=== PATIENT | female | born 1990 | race Caucasian/White ===

== ENCOUNTER 2018-01-05 16:10 | Inpatient (IN) | payer MEDICAID ==
[~2018-01-05] VITALS: Ht 167.6 cm; Wt 52.2 kg
[~2018-01-05 16:10] MED LIST: PREN1CAP PO
[2018-01-05 16:16] VITALS: BP 125/72; PULSE 116; RESP 20; TEMP 100.2; O2SAT 100
[2018-01-05] MEDS ORDERED: SODIUM CHLOR 0.9% 1000 ML INJ 1,000 ML IV ONE ×2 (16:45→18:45)
[2018-01-05] MEDS ORDERED: VANCOMYCIN INJ 1,000 MG in SODIUM CHLOR 0.9% 250 ML INJ 250 ML IV ONE (16:45)
[2018-01-05] MEDS ORDERED: KETOROLAC TROMETHAMINE 30 MG/ML (IVP) VIAL IV PUSH ONE (16:45)
[2018-01-05] MEDS ORDERED: PIPERACIL-TAZO 3.375 GM PREMIX 50 ML IV ONE (16:45)
[2018-01-05] MEDS ORDERED: NORG1TAB28 PO (16:56)
[2018-01-05 17:05] VITALS: BP 123/71; PULSE 108; RESP 22; O2SAT 99
[2018-01-05 17:28] LABS: AUTOMATED NEUTROPHIL # 11.5 TH/MM3 (1.8-7.7); BASOPHIL % 0.2 % (0.0-2.0); EOSINOPHIL % 0.2 % (0.0-4.0); HEMATOCRIT 36.9 % (35.0-46.0); HEMOGLOBIN 12.7 GM/DL (11.6-15.3); LYMPH % 4.1 % (9.0-44.0); LYMPHOCYTE # 0.5 TH/MM3 (1.0-4.8); MEAN CELL VOLUME 89.7 FL (80.0-100.0); MEAN CORPUSCULAR HGB CONC 34.5 % (32.0-36.0); MEAN PLATELET VOLUME 8.7 FL (7.0-11.0); MONO % 5.6 % (0.0-8.0); MONOCYTE # 0.7 TH/MM3 (0-0.9); NEUT % 89.9 % (16.0-70.0); PLATELET COUNT 180 TH/MM3 (150-450); RED BLOOD COUNT 4.11 MIL/MM3 (4.00-5.30); RED CELL DISTRIBUTION WIDTH 12.7 % (11.6-17.2); WHITE BLOOD COUNT 12.8 TH/MM3 (4.0-11.0)
[2018-01-05 17:53] LABS: ALT (GPT) 26 U/L (10-53); AST (GOT) 24 U/L (15-37); BICARBONATE 25.7 MEQ/L (21.0-32.0); BLOOD UREA NITROGEN 7 MG/DL (7-18); CALCIUM 8.7 MG/DL (8.5-10.1); CHLORIDE 104 MEQ/L (98-107); CREATININE 0.65 MG/DL (0.50-1.00); GLOMERULAR FILTRATION RATE 109 ML/MIN (>89); GLUCOSE,RANDOM 119 MG/DL (74-106); MAGNESIUM 1.8 MG/DL (1.5-2.5); SODIUM (NA) 139 MEQ/L (136-145)
[2018-01-05 17:56] LABS: ALKALINE PHOSPHATASE 42 U/L (45-117); TOTAL BILIRUBIN ADULT 0.8 MG/DL (0.2-1.0); TOTAL PROTEIN 7.6 GM/DL (6.4-8.2)
[2018-01-05] MEDS ORDERED: diphenhydrAMINE HCL 50 MG/ML VIAL ONE (17:57)
[2018-01-05] MEDS ORDERED: diphenhydrAMINE HCL 50 MG/ML VIAL IV PUSH ONE (18:00)
[2018-01-05 19:07] VITALS: BP 119/64; PULSE 95; RESP 18; TEMP 100.2; O2SAT 100
--- NOTE | 2018-01-05 19:23 | PD ---
HPI Chief Complaint: Skin Problem Time Seen by Provider: 16:34 Travel History International Travel<30 days: No Contact w/Intl Traveler<30days: No Traveled to known affect area: No History of Present Illness HPI 27-year-old female that presents to the ED for evaluation of right leg infection. Per patient is been ongoing for 6 days. Per patient she noted that he looked like insect bite and he progressively has gotten worse. Per patient she has had something like this before last year when she had of her axilla but she did not think much of it and he went away on its own. She is noted that today she developed a fever and she feels more weak and has body aches. She has chills as well. This is what concerned her as well as the increase in size of the infection. She has not seen anybody for this. Denies any other medical issues. No urinary or bowel movement issues. No . No trauma. No history of IV drug abuse. Pain per patient is 8 out of 10 on the right leg. Takes no medications whatsoever other than Motrin or Tylenol for the pain. PFSH Past Medical History Medical History: Denies Significant Hx Cardiovascular Problems: No Endocrine: No Genitourinary: No Immune Disorder: No Musculoskeletal: No Neurologic: No Psychiatric: No Reproductive: No Respiratory: No Immunizations Current: Yes ?: Not LMP: 12/21/17 : 1 Para: 0 Miscarriage: 0 : 0 Past Surgical History Appendectomy: Yes Social History Alcohol Use: No (occassionally ) Tobacco Use: No Substance Use: No Allergies-Medications (Allergen,Severity, Reaction): Coded Allergies: vancomycin (Verified Allergy, Severe, Itching, 01/05/18) Reported Meds & Prescriptions Reported Meds & Active Scripts Active Reported Ortho Tri-Cyclen Lo (Norgestimate-Ethinyl Estradiol) 0.18/0.215/0.25 mg-25 Mcg Tab 1 Tab PO DAILY Review of Systems Except as stated in HPI: all other systems reviewed are Neg Physical Exam Narrative GENERAL: SKIN: Warm and dry. HEAD: Atraumatic. Normocephalic. EYES: Pupils equal and round. No scleral icterus. No injection or drainage. ENT: No nasal bleeding or discharge. Mucous membranes pink and moist. Tongue is midline. No uvula deviation. NECK: Trachea midline. No JVD. CARDIOVASCULAR: Regular rate and rhythm. No murmurs, S3, S4. RESPIRATORY: No accessory muscle use. Clear to auscultation. Breath sounds equal bilaterally. GASTROINTESTINAL: Abdomen soft, non-tender, nondistended. Hepatic and splenic margins not palpable. MUSCULOSKELETAL: Extremities without clubbing, cyanosis, or edema. No obvious deformities. Full range of motion of the upper and lower extremities bilaterally. 2+ pulses bilaterally. Patient has an area of erythema on the anterior aspect of the right leg that is about 10 cm in diameter what appears to be an indurated area on the area just above the tibia. Very tender to touch but no obvious purulence noted. Very warm to touch. No lymphadenopathy noted. Able to move the leg fully. Appears to be in the mid tibia and fibula NEUROLOGICAL: Awake and alert. No obvious cranial nerve deficits. Motor grossly within normal limits. Five out of 5 muscle strength in the arms and legs. Normal speech. PSYCHIATRIC: Appropriate mood and affect; insight and judgment normal. Data Data Last Documented VS Vital Signs Date Time Temp Pulse Resp B/P (MAP) Pulse Ox O2 Delivery O2 Flow Rate FiO2 01/05/18 19:07 100.2 95 18 119/64 (82) 100 Room Air Orders Orders Complete Blood Count With Diff (01/05/18 16:40) Comprehensive Metabolic Panel (01/05/18 16:40) Blood Culture (01/05/18 16:40) C-Reactive Protein (Crp) (01/05/18 16:40) Magnesium (Mg) (01/05/18 16:40) Wound Culture And Gram Stain (01/05/18 16:40) Iv Access Insert/Monitor (01/05/18 16:40) Ecg Monitoring (01/05/18 16:40) Vancomycin Inj (Vancomycin Inj) (01/05/18 16:45) Sodium Chlor 0.9% 1000 Ml Inj (Ns 1000 M (01/05/18 16:45) Piperacil-Tazo 3.375 Gm Premix (Zosyn 3. (01/05/18 16:45) Lactic Acid Sepsis Protocol (01/05/18 16:40) Ketorolac Inj (Toradol Inj) (01/05/18 16:45) Diphenhydramine Inj (Benadryl Inj) (01/05/18 18:00) Diphenhydramine Inj (Benadryl Inj) (01/05/18 17:57) Sodium Chlor 0.9% 1000 Ml Inj (Ns 1000 M (01/05/18 18:45) Admit Order (Ed Use Only) (01/05/18 19:47) Labs Laboratory Tests Test 01/05/18 17:00 White Blood Count 12.8 TH/MM3 Red Blood Count 4.11 MIL/MM3 Hemoglobin 12.7 GM/DL Hematocrit 36.9 % Mean Corpuscular Volume 89.7 FL Mean Corpuscular Hemoglobin 31.0 PG Mean Corpuscular Hemoglobin Concent 34.5 % Red Cell Distribution Width 12.7 % Platelet Count 180 TH/MM3 Mean Platelet Volume 8.7 FL Neutrophils (%) (Auto) 89.9 % Lymphocytes (%) (Auto) 4.1 % Monocytes (%) (Auto) 5.6 % Eosinophils (%) (Auto) 0.2 % Basophils (%) (Auto) 0.2 % Neutrophils # (Auto) 11.5 TH/MM3 Lymphocytes # (Auto) 0.5 TH/MM3 Monocytes # (Auto) 0.7 TH/MM3 Eosinophils # (Auto) 0.0 TH/MM3 Basophils # (Auto) 0.0 TH/MM3 CBC Comment DIFF FINAL Differential Comment Blood Urea Nitrogen 7 MG/DL Creatinine 0.65 MG/DL Random Glucose 119 MG/DL Total Protein 7.6 GM/DL Albumin 4.0 GM/DL Calcium Level 8.7 MG/DL Magnesium Level 1.8 MG/DL Alkaline Phosphatase 42 U/L Aspartate Amino Transf (AST/SGOT) 24 U/L Alanine Aminotransferase (ALT/SGPT) 26 U/L Total Bilirubin 0.8 MG/DL Sodium Level 139 MEQ/L Potassium Level 3.5 MEQ/L Chloride Level 104 MEQ/L Carbon Dioxide Level 25.7 MEQ/L Anion Gap 9 MEQ/L Estimat Glomerular Filtration Rate 109 ML/MIN Lactic Acid Level 1.0 mmol/L C-Reactive Protein 13.10 MG/DL MDM Medical Decision Making Medical Screen Exam Complete: Yes Emergency Medical Condition: Yes Medical Record Reviewed: Yes Interpretation(s) CBC & BMP Diagram 01/05/18 17:00 Total Protein 7.6, Albumin 4.0, Calcium Level 8.7, Magnesium Level 1.8, Alkaline Phosphatase 42 L, Aspartate Amino Transf (AST/SGOT) 24, Alanine Aminotransferase (ALT/SGPT) 26, Total Bilirubin 0.8 CRP elevated Differential Diagnosis cellulitis vs abscess vs sepsis Narrative Course 27-year-old female that presents to the ED for evaluation of cellulitis of the right leg. Patient was properly examined and was found to have signs and symptoms consistent with cellulitis. Patient is tachycardic and has an increased temperature at this time. There is definitely concern for sepsis. Labs ordered. Labs did show elevated white blood cell count. Patient still tachycardic after given fluids as well as antibiotics. Patient overall feels better but there is a for concern for sepsis. My attending Dr Salazar agrees with plan. HEPAS was paged Sepsis Criteria SIRS Criteria (2 or more): Heart rate over 90, WBC > 12950, < 4000 or > 10% bands Sepsis Criteria (SIRS+source): Infect source susp/known Criteria Outcome: Meets sepsis criteria Diagnosis Primary Impression: Cellulitis Qualified Codes: L03.115 - Cellulitis of right lower limb Additional Impression: Sepsis Qualified Codes: A41.9 - Sepsis, unspecified organism Admitting Information Admitting Physician Requests: Admit Joby Love January 05, 2018 19:23
[2018-01-05] MEDS ORDERED: BISACODYL 10 MG SUPP RECTAL PRN (19:45)
[2018-01-05] MEDS ORDERED: SENNOSIDES 8.6 MG TAB PO PRN (19:45)
[2018-01-05] MEDS ORDERED: LACTULOSE SYRUP 20 GM/30 ML CUP PO PRN (19:45)
[2018-01-05] MEDS ORDERED: MAGNESIUM HYDROXIDE SUSP 30 ML CUP PO PRN (19:45)
[2018-01-05] MEDS ORDERED: NALOXONE HCL 0.4 MG/ML AMP IV PUSH PRN (19:45)
[2018-01-05] MEDS ORDERED: SODIUM CHLORIDE 0.9% FLUSH 10 ML FLUSH IV FLUSH PRN (19:45)
--- NOTE | 2018-01-05 21:11 | HHI.HP ---
[facility] No Primary Care Physician Admission Diagnosis acute right leg cellulitis, sepsis Diagnoses: Chief Complaint: Right leg pain and edema Travel History International Travel<30 Days: No Contact w/Intl Traveler <30 Da: No Traveled to Known Affected Are: No History of Present Illness 27-year-old female with no medical history presented to the ED with right lower extremity redness, pain and edema status post mosquito bite. Patient states on Wednesday she thinks she was bitten by a mosquito and over the past couple of days it became more red and swollen with a small amount of sanguinous drainage. Patient states on Wednesday she began to have fevers and chills. She states the pain is a intermittent, throbbing, 4/10, to her right bennett with no radiation or associated symptoms, worse with palpation better with pain medication. She denies any chest pain or shortness of breath Review of Systems Except as stated in HPI: all other systems reviewed are Neg Past Family Social History Past Medical History Patient denies any medical history Past Surgical History Appendectomy Reported Medications Reported Meds & Active Scripts Active Reported Ortho Tri-Cyclen Lo (Norgestimate-Ethinyl Estradiol) 0.18/0.215/0.25 mg-25 Mcg Tab 1 Tab PO DAILY Allergies: Coded Allergies: vancomycin (Verified Allergy, Severe, Itching, 01/05/18) Active Ordered Medications Current Medications Medications (Trade) Dose Ordered Sig/Charles Route Start Time Stop Time Status Last Admin Piperacillin Sod/ Tazobactam Sod 100 ml @ 200 mls/hr Q6H IV 01/05/18 23:00 Sodium Chloride 1,000 ml @ 100 mls/hr Q10H IV 01/05/18 21:00 (NS Flush) 2 ml UNSCH PRN IV FLUSH 01/05/18 19:45 (NS Flush) 2 ml BID IV FLUSH 01/05/18 21:00 (Narcan Inj) 0.4 mg UNSCH PRN IV PUSH 01/05/18 19:45 (Milk Of Magnesia Liq) 30 ml Q12H PRN PO 01/05/18 19:45 (Senokot) 17.2 mg Q12H PRN PO 01/05/18 19:45 (Dulcolax Supp) 10 mg DAILY PRN RECTAL 01/05/18 19:45 (Lactulose Liq) 30 ml DAILY PRN PO 01/05/18 19:45 Family History Patient denies any family history, no heart disease or cancer Social History Patient denies any tobacco, alcohol or illicit drug use Physical Exam Vital Signs Vital Signs Date Time Temp Pulse Resp B/P (MAP) Pulse Ox O2 Delivery O2 Flow Rate FiO2 01/05/18 19:07 100.2 95 18 119/64 (82) 100 Room Air 01/05/18 17:05 108 22 123/71 (88) 99 Room Air 01/05/18 16:16 100.2 116 20 125/72 (89) 100 Physical Exam GENERAL: This is a well-nourished, well-developed patient, in no apparent distress. SKIN: Right bright red bennett lesion with surrounding cellulitis, no drainage HEAD: Atraumatic. Normocephalic. EYES: Pupils equal round and reactive. CARDIOVASCULAR: Regular rate and rhythm without murmurs, gallops, or rubs. RESPIRATORY: Clear to auscultation. Breath sounds equal bilaterally. No wheezes , rales, or rhonchi. GASTROINTESTINAL: Abdomen soft, non-tender, nondistended. BS x 4 MUSCULOSKELETAL: Right bennett tenderness with surrounding edema. No calf tenderness. NEUROLOGICAL: Awake and alert. Motor and sensory grossly within normal limits. Normal speech. Laboratory Laboratory Tests Test 01/05/18 17:00 White Blood Count 12.8 Red Blood Count 4.11 Hemoglobin 12.7 Hematocrit 36.9 Mean Corpuscular Volume 89.7 Mean Corpuscular Hemoglobin 31.0 Mean Corpuscular Hemoglobin Concent 34.5 Red Cell Distribution Width 12.7 Platelet Count 180 Mean Platelet Volume 8.7 Neutrophils (%) (Auto) 89.9 Lymphocytes (%) (Auto) 4.1 Monocytes (%) (Auto) 5.6 Eosinophils (%) (Auto) 0.2 Basophils (%) (Auto) 0.2 Neutrophils # (Auto) 11.5 Lymphocytes # (Auto) 0.5 Monocytes # (Auto) 0.7 Eosinophils # (Auto) 0.0 Basophils # (Auto) 0.0 CBC Comment DIFF FINAL Differential Comment Blood Urea Nitrogen 7 Creatinine 0.65 Random Glucose 119 Total Protein 7.6 Albumin 4.0 Calcium Level 8.7 Magnesium Level 1.8 Alkaline Phosphatase 42 Aspartate Amino Transf (AST/SGOT) 24 Alanine Aminotransferase (ALT/SGPT) 26 Total Bilirubin 0.8 Sodium Level 139 Potassium Level 3.5 Chloride Level 104 Carbon Dioxide Level 25.7 Anion Gap 9 Estimat Glomerular Filtration Rate 109 Lactic Acid Level 1.0 C-Reactive Protein 13.10 Date/Time Source Procedure Growth Status 01/05/18 17:00 Blood Peripheral Aerobic Blood Culture Pending Received 01/05/18 17:00 Blood Peripheral Anaerobic Blood Culture Pending Received 01/05/18 17:00 Wound Leg Gram Stain Pending Received 01/05/18 17:00 Wound Leg Wound Culture Pending Received Result Diagram: 01/05/18 1700 01/05/18 1700 Neville VTE Risk Assessment Neville VTE Risk Assessment: No/Low Risk (score <= 1) Caprini Risk Assessment Model Point Value = 1 Point Value = 2 Point Value = 3 Point Value = 5 Age 41-60 Minor surgery BMI > 25 kg/m2 Swollen legs Varicose veins or History of unexplained or recurrent spontaneous Oral contraceptives or hormone replacement Sepsis (< 1 month) Serious lung disease, including pneumonia (< 1 month) Abnormal pulmonary function Acute myocardial infarction Congestive heart failure (< 1 month) History of inflammatory bowel disease Medical patient at bed rest Age 61-74 Arthroscopic surgery Major open surgery (> 45 min) Laparoscopic surgery (> 45 min) Malignancy Confined to bed (> 72 hours) Immobilizing plaster cast Central venous access Age >= 75 History of VTE Family history of VTE Factor V Leiden Prothrombin [id number] Lupus anticoagulant Anticardiolipin antibodies Elevated serum homocysteine Heparin-induced thrombocytopenia Other congenital or acquired thrombophilia Stroke (< 1 month) Elective arthroplasty Hip, pelvis, or leg fracture Acute spinal cord injury (< 1 month) Prophylaxis Regimen Total Risk Factor Score Risk Level Prophylaxis Regimen 0-1 Low Early ambulation 2 Moderate Order ONE of the following: *Sequential Compression Device (SCD) *Heparin 5000 units SQ BID 3-4 Higher Order ONE of the following medications: *Heparin 5000 units SQ TID *Enoxaparin/Lovenox 40 mg SQ daily (WT < 150 kg, CrCl > 30 mL/min) *Enoxaparin/Lovenox 30 mg SQ daily (WT < 150 kg, CrCl > 10-29 mL/min) *Enoxaparin/Lovenox 30 mg SQ BID (WT < 150 kg, CrCl > 30 mL/min) AND/OR *Sequential Compression Device (SCD) 5 or more Highest Order ONE of the following medications: *Heparin 5000 units SQ TID (Preferred with Epidurals) *Enoxaparin/Lovenox 40 mg SQ daily (WT < 150 kg, CrCl > 30 mL/min) *Enoxaparin/Lovenox 30 mg SQ daily (WT < 150 kg, CrCl > 10-29 mL/min) *Enoxaparin/Lovenox 30 mg SQ BID (WT < 150 kg, CrCl > 30 mL/min) AND *Sequential Compression Device (SCD) Assessment and Plan Problem List: (1) Cellulitis ICD Code: L03.90 - Cellulitis, unspecified Status: Acute (2) Sepsis ICD Code: A41.9 - Sepsis, unspecified organism Status: Acute Assessment and Plan 27-year-old female with no medical history presented to the ED with right lower extremity redness, pain and edema status post mosquito bite. Sepsis, WBC 12.8, heart rate 116, source right bennett cellulitis Lactic acid 1.0, CRP 13.10 -IV Zosyn, patient was given IV vancomycin developed a rash that was soon relieved by Benadryl, vancomycin was discontinued and consult was placed to ID -Toradol IV for pain -Wound and blood cultures pending -Continue IV -CBC in the a.m. DVT prophylaxis: SCDs to Discussed Condition With Patient and RN Physician Certification 2 Midnight Certification Type: Admission for Inpatient Services Order for Inpatient Services The services are ordered in accordance with Medicare regulations or non- Medicare payer requirements, as applicable. In the case of services not specified as inpatient-only, they are appropriately provided as inpatient services in accordance with the 2-midnight benchmark. Estimated LOS (days): 2 days is the estimated time the patient will need to remain in the hospital, assuming treatment plan goals are met and no additional complications. Post-Hospital Plan: Home Problem Qualifiers (1) Cellulitis: Qualified Codes: L03.115 - Cellulitis of right lower limb (2) Sepsis: Qualified Codes: A41.9 - Sepsis, unspecified organism Oanh Howard January 05, 2018 21:11
[2018-01-05 22:09] VITALS: BP 125/66; PULSE 95; RESP 16; TEMP 99.3; O2SAT 99
[2018-01-05] MEDS: SODIUM CHLOR 0.9% 1000 ML INJ 1,000 ML IV SCH (22:19)
[2018-01-05] MEDS: SODIUM CHLORIDE 0.9% FLUSH 10 ML FLUSH IV FLUSH SCH (22:19)
[2018-01-05] MEDS: PIPERACIL-TAZO 4.5 GM PREMIX 100 ML IV SCH (23:23)
[2018-01-06] VITALS: BP 119/62; PULSE 100; RESP 21; TEMP 99; O2SAT 97
[2018-01-06] MEDS: PIPERACIL-TAZO 4.5 GM PREMIX 100 ML IV SCH ×4 (04:23→22:56)
[2018-01-06] MEDS: KETOROLAC TROMETHAMINE 30 MG/ML (IVP) VIAL IV PUSH PRN ×2 (04:23→17:03)
[2018-01-06 06:15] LABS: AUTOMATED NEUTROPHIL # 7.3 TH/MM3 (1.8-7.7); BASOPHIL % 0.3 % (0.0-2.0); EOSINOPHIL # 0.1 TH/MM3 (0-0.4); EOSINOPHIL % 1.3 % (0.0-4.0); HEMATOCRIT 31.5 % (35.0-46.0); HEMOGLOBIN 11.1 GM/DL (11.6-15.3); LYMPH % 12.4 % (9.0-44.0); LYMPHOCYTE # 1.2 TH/MM3 (1.0-4.8); MEAN CELL VOLUME 90.8 FL (80.0-100.0); MEAN CORPUSCULAR HGB CONC 35.2 % (32.0-36.0); MEAN PLATELET VOLUME 9.2 FL (7.0-11.0); MONO % 7.4 % (0.0-8.0); MONOCYTE # 0.7 TH/MM3 (0-0.9); NEUT % 78.6 % (16.0-70.0); PLATELET COUNT 156 TH/MM3 (150-450); RED BLOOD COUNT 3.47 MIL/MM3 (4.00-5.30); RED CELL DISTRIBUTION WIDTH 12.9 % (11.6-17.2); WHITE BLOOD COUNT 9.3 TH/MM3 (4.0-11.0)
[2018-01-06 06:56] LABS: ALBUMIN 2.9 GM/DL (3.4-5.0); ALKALINE PHOSPHATASE 41 U/L (45-117); ALT (GPT) 20 U/L (10-53); AST (GOT) 15 U/L (15-37); BICARBONATE 24.5 MEQ/L (21.0-32.0); BLOOD UREA NITROGEN 8 MG/DL (7-18); CALCIUM 7.8 MG/DL (8.5-10.1); CHLORIDE 111 MEQ/L (98-107); CREATININE 0.58 MG/DL (0.50-1.00); GLOMERULAR FILTRATION RATE 124 ML/MIN (>89); GLUCOSE,RANDOM 103 MG/DL (74-106); SODIUM (NA) 143 MEQ/L (136-145); TOTAL BILIRUBIN ADULT 0.6 MG/DL (0.2-1.0); TOTAL PROTEIN 6.2 GM/DL (6.4-8.2)
[2018-01-06 08:00] VITALS: BP 120/64; PULSE 87; RESP 16; TEMP 98; O2SAT 99
[2018-01-06] MEDS: SODIUM CHLORIDE 0.9% FLUSH 10 ML FLUSH IV FLUSH SCH ×2 (09:00→17:03)
[2018-01-06] MEDS: SODIUM CHLOR 0.9% 1000 ML INJ 1,000 ML IV SCH (09:31)
--- NOTE | 2018-01-06 09:53 | HHI.PR ---
Subjective Remarks Follow-up sepsis/right lower extremity cellulitis January 06, 2018-patient seen and examined, T-max 100.2 however currently afebrile. Patient reports improvement of right lower extremity pain. Objective Vitals Vital Signs Date Time Temp Pulse Resp B/P (MAP) Pulse Ox O2 Delivery O2 Flow Rate FiO2 01/06/18 08:00 98.0 87 16 120/64 (82) 99 01/06/18 00:00 99.0 100 21 119/62 (81) 97 01/05/18 22:09 99.3 95 16 125/66 (85) 99 01/05/18 22:08 01/05/18 19:07 100.2 95 18 119/64 (82) 100 Room Air 01/05/18 17:05 108 22 123/71 (88) 99 Room Air 01/05/18 16:16 100.2 116 20 125/72 (89) 100 I/O 01/05/18 01/05/18 01/05/18 01/06/18 01/06/18 01/06/18 07:00 15:00 23:00 07:00 15:00 23:00 Intake Total 2085 ml Balance 2085 ml Intake IV Total 2085 ml Result Diagram: 01/06/18 0433 01/06/18 0433 Objective Remarks GENERAL: NAD SKIN: Right bright red bennett lesion with surrounding cellulitis, no drainage HEAD: Normocephalic. EYES: No scleral icterus. No injection or drainage. NECK: Supple, trachea midline. No JVD or lymphadenopathy. CARDIOVASCULAR: Regular rate and rhythm without murmurs, gallops, or rubs. RESPIRATORY: Breath sounds equal bilaterally. No accessory muscle use. GASTROINTESTINAL: Abdomen soft, non-tender, nondistended. MUSCULOSKELETAL: No cyanosis, or edema. BACK: Nontender without obvious deformity. No CVA tenderness. A/P Problem List: (1) Sepsis ICD Code: A41.9 - Sepsis, unspecified organism Status: Acute (2) Cellulitis ICD Code: L03.90 - Cellulitis, unspecified Status: Acute Assessment and Plan 27 years old female with Sepsis, WBC 12.8, heart rate 116, source right bennett cellulitis Lactic acid 1.0, CRP 13.10 -Currently on IV vancomycin and Zosyn pending culture reports, likely we will discharge home on p.o. antibiotic within the next 24-48 hours -Will hold on infectious disease consultation -Toradol IV for pain DVT prophylaxis: SCDs to Problem Qualifiers (1) Sepsis: Qualified Codes: A41.9 - Sepsis, unspecified organism (2) Cellulitis: Qualified Codes: L03.115 - Cellulitis of right lower limb Javed Vega MD January 06, 2018 09:53
[2018-01-06 12:00] VITALS: BP 130/71; PULSE 81; RESP 16; TEMP 97.7; O2SAT 100
--- NOTE | 2018-01-06 15:44 | PD.WCN.NOT ---
Wound Consult Description: Consult for WOUND MANAGEMENT of leg per Dr Escobedo Communicated with: Patient RN Recommendation: Cleanse lower right leg with NS and gauze every 3 days and PRN for saturation or dislodgement of dressing. Apply Optifoam AG over wound bed. Apply skin prep to periwound. Cover wound and periwound with 4x4 gauze and secure with rolled gauze and tape. Keep leg elevated while in bed/chair. Additional Information: Patient seen in [facility] for right leg evaluation this morning @1130. Wound was cleansed with NS and gauze and measured 0.7cm x 0.8cm x <0.1cm. Wound bed is dry , noted with 100% red non granulating tissue, round in shape, shallow, not actively draining, no odor noted. Wound margins are open. Periwound is red, erythematous, tight, edematous extending ~3.5cm out circumferentially from wound bed. Periwound was skin prepped using Bards skin barrier film. A piece of Optifoam AG was cut to fit wound bed and placed over the wound bed and then covered with a 4x4 gauze dressing that was secured with rolled gauze and tape. Recommend to change dressing every 3 days and PRN for saturation or dislodgement. Culture of wound was taken previously prior to lyric writer arrival and is pending. [facility] Sigala [facility] January 06, 2018 15:44
[2018-01-06 16:00] VITALS: BP 131/65; PULSE 98; RESP 16; TEMP 98.6; O2SAT 100
[2018-01-06 19:25] VITALS: BP 130/60; PULSE 93; RESP 18; TEMP 99; O2SAT 99
[2018-01-06 22:45] VITALS: BP 132/67; PULSE 97; RESP 16; TEMP 98.8; O2SAT 100
[2018-01-07 04:29] VITALS: BP 127/66; PULSE 93; RESP 16; TEMP 100.3; O2SAT 98
[2018-01-07] MEDS: PIPERACIL-TAZO 4.5 GM PREMIX 100 ML IV SCH (04:30)
[2018-01-07 07:47] VITALS: BP 113/66; PULSE 89; RESP 18; TEMP 98.3; O2SAT 98
[2018-01-07] MEDS ORDERED: IBUP1TAB5 PO (07:58)
--- NOTE | 2018-01-07 07:59 | HHI.DCPOC ---
Discharge Care Plan Diagnosis: (1) Cellulitis Your Health Problems Are: Inflammation Swelling Goals to Promote Your Health * To prevent worsening of your condition and complications * To maintain your health at the optimal level Directions to Meet Your Goals Take your medications as prescribed Follow your dietary instruction Follow activity as directed Keep your appointments as scheduled Take your immunizations and boosters as scheduled If your symptoms worsen call your PCP, if no PCP go to Urgent Care Center or Emergency Room Smoking is Dangerous to Your Health. Avoid second hand smoke Call the 24-hour hour crisis hotline for domestic abuse at Janene Adams January 07, 2018 07:59
[2018-01-07] MEDS ORDERED: BACT800T5 PO (08:41)
--- NOTE | 2018-01-07 08:59 | HHI.PR ---
Subjective Remarks Follow-up sepsis/right lower extremity cellulitis January 06, 2018-patient seen and examined, T-max 100.2 however currently afebrile. Patient reports improvement of right lower extremity pain. January 07, 2018-patient seen and examined, reports significant improvement of right lower extremity pain and swelling. Objective Vitals Vital Signs Date Time Temp Pulse Resp B/P (MAP) Pulse Ox O2 Delivery O2 Flow Rate FiO2 01/07/18 07:47 98.3 89 18 113/66 (82) 98 01/07/18 04:29 100.3 93 16 127/66 (86) 98 01/06/18 22:45 98.8 97 16 132/67 (88) 100 01/06/18 19:25 99.0 93 18 130/60 (83) 99 01/06/18 18:03 18 01/06/18 16:00 98.6 98 16 131/65 (87) 100 01/06/18 12:00 97.7 81 16 130/71 (90) 100 Result Diagram: 01/06/18 0433 01/06/18 0433 Objective Remarks GENERAL: NAD SKIN: Right bright red bennett lesion with improving surrounding cellulitis, no drainage HEAD: Normocephalic. EYES: No scleral icterus. No injection or drainage. NECK: Supple, trachea midline. No JVD or lymphadenopathy. CARDIOVASCULAR: Regular rate and rhythm without murmurs, gallops, or rubs. RESPIRATORY: Breath sounds equal bilaterally. No accessory muscle use. GASTROINTESTINAL: Abdomen soft, non-tender, nondistended. MUSCULOSKELETAL: No cyanosis, or edema. BACK: Nontender without obvious deformity. No CVA tenderness. A/P Problem List: (1) Sepsis ICD Code: A41.9 - Sepsis, unspecified organism Status: Acute (2) Cellulitis ICD Code: L03.90 - Cellulitis, unspecified Status: Acute Assessment and Plan 27 years old female with Sepsis, WBC 12.8, heart rate 116, source right bennett cellulitis-resolved Lactic acid 1.0, CRP 13.10 -Currently on IV vancomycin and Zosyn, wound culture positive. Wound + for Staph Aureus sensitive to Bactrim DS -Appreciate input from Wound care nurse -Toradol IV for pain DVT prophylaxis: SCDs to LLE only Problem Qualifiers (1) Sepsis: Qualified Codes: A41.9 - Sepsis, unspecified organism (2) Cellulitis: Qualified Codes: L03.115 - Cellulitis of right lower limb Javed Vega MD January 07, 2018 08:59
[2018-01-07] MEDS: SODIUM CHLORIDE 0.9% FLUSH 10 ML FLUSH IV FLUSH SCH (09:00)
== END 2018-01-07 13:09 | disposition home or self-care (01) | DRG 872 ==
LOC: NEPE 16:10 → NEDA 19:49 → NEPFCDU 21:50
PROVIDERS: ADMIT Hospitalist; ATTEND Hospitalist
DX: A41.9 Sepsis, unspecified organism (principal); L03.115 Cellulitis of right lower limb; Z88.1 Allergy status to other antibiotic agents
CPT/HCPCS: 80053; 83605; 83735; 85025; 86140; 87040; 87070; 87077; 87186; 87205; 96361; 96365; 96367; 96375; J1200; J1885; J2543; J3370; J7030; J7050